=== PATIENT | female | born 1960 | race Native Hawaiian/Other Pacific Islander ===

== ENCOUNTER 2022-12-11 16:45 | Emergency (ER) | payer OTHER ==
[~2022-12-11] VITALS: Ht 157.5 cm; Wt 77.1 kg
== END 2022-12-11 18:35 | disposition home or self-care (01) ==
LOC: ED 16:45
DX: S93.401A Sprain of unspecified ligament of right ankle, initial encounter (principal); M79.671 Pain in right foot; X50.1XXA Overexertion from prolonged static or awkward postures, initial encounter; Y93.89 Activity, other specified; Y92.89 Other specified places as the place of occurrence of the external cause; Y99.9 Unspecified external cause status; S90.31XA Contusion of right foot, initial encounter
CPT/HCPCS: 99283

== ENCOUNTER 2023-06-14 16:31 | Emergency (ER) | payer OTHER ==
[~2023-06-14] VITALS: Ht 157.5 cm; Wt 67.1 kg
== END 2023-06-14 19:05 | disposition home or self-care (01) ==
LOC: ED 16:31
DX: M25.562 Pain in left knee (principal); M17.12 Unilateral primary osteoarthritis, left knee; W19.XXXA Unspecified fall, initial encounter; Y93.89 Activity, other specified; Y92.89 Other specified places as the place of occurrence of the external cause
CPT/HCPCS: 99282